=== PATIENT | male | born 1990 | race Caucasian/White ===

== ENCOUNTER 2021-08-12 18:57 | Emergency (ER) | payer OTHER ==
[2021-08-12 19:38] VITALS: BP 127/69; PULSE 67; TEMP 98; BMI 23.3
[2021-08-12] MEDS ORDERED: DIPHTH,PERTUSS(ACELL),TET 0.5 ML DISP.SYRIN IM ONE ×2 (19:44→19:45)
== END 2021-08-12 19:57 | disposition home or self-care (01) ==
LOC: FER 18:57
PROC: 0HQDXZZ Repair Right Lower Arm Skin, External Approach (ICD-10-PCS; principal; 2021-08-12)
PROC: 3E0234Z Introduction of Serum, Toxoid and Vaccine into Muscle, Percutaneous Approach (ICD-10-PCS; 2021-08-12)
DX: S61.200A Unspecified open wound of right index finger without damage to nail, initial encounter (principal)
CPT/HCPCS: 90715; 99283-25